=== PATIENT | female | born 1955 | race Caucasian/White ===

== ENCOUNTER → 2017-11-16 | Outpatient (CLI) | payer OTHER | LOC: M LRY 10:46 | DX: S39.92XA Unspecified injury of lower back, initial encounter (principal); X58.XXXA Exposure to other specified factors, initial encounter; Y92.89 Other specified places as the place of occurrence of the external cause | CPT/HCPCS: 72220 ==

== ENCOUNTER → 2018-04-24 | Outpatient (CLI) | payer OTHER ==
[2018-04-24 16:59] LABS: ALBUMIN 3.5 GM/DL (3.2-5.2); ALT/SGPT 29 U/L (12-78); BILIRUBIN,TOTAL 0.4 MG/DL (0.2-1.0); BLOOD UREA NITROGEN 15 MG/DL (7-18); CALCIUM LEVEL 8.5 MG/DL (8.8-10.2); CARBON DIOXIDE LEVEL 26 MEQ/L (21-32); CHLORIDE LEVEL 105 MEQ/L (98-107); CHOLESTEROL LEVEL 185 MG/DL (<200); CHOLESTEROL RISK RATIO 3.189 (<5); CREATININE FOR GFR 0.87 MG/DL (0.55-1.30); GLOMERULAR FILTRATION RATE > 60.0 (>45); GLUCOSE, FASTING 93 MG/DL (70-100); HDL CHOLESTEROL 58 MG/DL (>40); LDL CHOLESTEROL 101 MG/DL (<100); NON-HDL-C 127 MG/DL; POTASSIUM SERUM 4.5 MEQ/L (3.5-5.1); SODIUM LEVEL 141 MEQ/L (136-145); TOTAL PROTEIN 6.8 GM/DL (6.4-8.2); TRIGLYCERIDES LEVEL 130 MG/DL (<150)
[2018-04-26 11:51] LABS: HEPATITIS C VIRUS ABY INDEX 0.1 INDEX (<0.8)
== END ==
LOC: M SFHCPLAZ 10:00 → M RAD 10:00
PROVIDERS: ATTEND Family Medicine
DX: K21.9 Gastro-esophageal reflux disease without esophagitis (principal); E66.9 Obesity, unspecified; Z68.34 Body mass index [BMI] 34.0-34.9, adult

== ENCOUNTER → 2018-04-25 | Outpatient (REF) | payer OTHER ==
[2018-04-25 13:56] LABS: HEMOGLOBIN A1c 6.1 %
== END ==
LOC: M LABDRAWC 11:16
PROVIDERS: ATTEND Family Medicine
DX: E66.9 Obesity, unspecified (principal)

== ENCOUNTER → 2018-05-31 | Outpatient (CLI) | payer OTHER ==
--- NOTE | 2018-05-31 19:37 | REPMRS ---
Patient History The patient states she has not had a clinical breast exam in over a year. No known family history of cancer. Benign stereotatic breast biopsy of the left breast. Digital Woman Screen Mammo: May 31, 2018 - Exam #: [id number] Bilateral CC and MLO view(s) were taken. Technologist: Calista Reyes, Technologist Prior study comparison: February 25, 2016, digital woman screen mammo performed at [facility]. January 05, 2013, digital woman screen mammo performed at [facility]. FINDINGS: There are scattered fibroglandular densities. There has been no change in the appearance of the mammogram from the prior studies. There is a mild amount of residual fibroglandular tissue which is fairly symmetric. There is no interval development of dominant mass, architectural distortion, or clustered microcalcification suggestive of malignancy. Scattered lymph nodes are seen in the axillae. Stereo clip in UOQ left breast as before. 3-D tomosynthesis shows no additional findings. The patient's Tyrer-Cuzick lifetime risk assessment score is 8.6 %. No significant changes when compared with prior studies. Assessment: BI-RADS/ACR category 2 mammogram. Benign Findings. Recommendation Routine screening mammogram in 1 year (for women over age 40). This mammogram was interpreted with the aid of an FDA-approved computer-aided dectection system. A. Negative x-ray reports should not delay biopsy if a dominant or clinically suspicious mass is present. B. Four to eight percent of cancers are not identified by mammography. C. Adenosis and dense breast may obscure an underlying neoplasm. Electronically Signed By: Parveen Espinoza MD 05/31/181936
== END ==
LOC: M WHC 12:05
PROVIDERS: ATTEND Family Medicine
DX: Z12.31 Encounter for screening mammogram for malignant neoplasm of breast (principal)

== ENCOUNTER → 2018-10-10 | Outpatient (REF) | payer MEDICARE, OTHER ==
[2018-10-10 13:21] LABS: HEMOGLOBIN A1c 5.9 %
== END ==
LOC: M SFHCLERA 09:50
PROVIDERS: ATTEND Family Medicine
DX: R73.02 Impaired glucose tolerance (oral) (principal); Z23 Encounter for immunization
CPT/HCPCS: 83036; 90471; 90472; 90670; 90715; G0463

== ENCOUNTER → 2020-02-21 | Outpatient (CLI) | payer MEDICARE ==
--- NOTE | 2020-02-21 09:55 | REPMRS ---
Patient History The patient states she has not had a clinical breast exam in over a year. No known family history of cancer. Benign stereotatic breast biopsy of the left breast. Digital Woman Screen Mammo: February 21, 2020 - Exam #: [id number] Bilateral CC and MLO view(s) were taken. Technologist: Azul Allison, Technologist Prior study comparison: May 31, 2018, bilateral digital woman screen mammo performed at [facility]. February 25, 2016, digital woman screen mammo performed at [facility]. January 05, 2013, digital woman screen mammo performed at [facility]. FINDINGS: The breast tissue is almost entirely fat. The Volpara volumetric breast density category is: A. There is a needle biopsy marker clip in the left breast. There has been no change in the appearance of the mammogram from the prior studies. There is no interval development of dominant mass, architectural distortion, or grouped microcalcification typical of malignancy. 3-D tomosynthesis shows no additional findings. Assessment: BI-RADS/ACR category 2 mammogram. Benign Findings. Recommendation Routine screening mammogram of both breasts in 1 year (for women over age 40). This patient's Lifetime Breast Cancer RIsk is estimated at 7.8 %. This mammogram was interpreted with the aid of an FDA-approved computer-aided dectection system. Electronically Signed By: Eros Lopez MD 02/21/20 0954
== END ==
LOC: M WHC 08:04
PROVIDERS: ATTEND Nurse Practitioner Family
DX: Z12.31 Encounter for screening mammogram for malignant neoplasm of breast (principal)

== ENCOUNTER → 2022-07-13 | Outpatient (REF) | payer MEDICARE, BC | LOC: M SFHCWAGY 15:27 | PROVIDERS: ATTEND Nurse Practitioner Family | DX: Z12.4 Encounter for screening for malignant neoplasm of cervix (principal); N95.8 Other specified menopausal and perimenopausal disorders ==

== ENCOUNTER 2023-05-06 08:55 | Day surgery (SDC) | payer MEDICARE ==
[~2023-05-06] VITALS: Ht 162.6 cm; Wt 87.7 kg
[~2023-05-06 08:55] MED LIST: BIOT5TAB3 PO; NS 1,000 ML IV ONE; OMEP40CA4 PO; VITA100093 PO; propofoL 500 MG/50 ML VIAL As Ordered ONE
[2023-05-06] MEDS ORDERED: fentaNYL 100 MCG/2 ML INJECTION As Ordered ONE (09:30)
[2023-05-06] MEDS ORDERED: LIDOCAINE 2% 100MG/5ML SDV (FOR ANES.) As Ordered ONE (09:31)
[2023-05-06 11:11] VITALS: TEMP 97.7
[2023-05-06 11:25] VITALS: BP 131/63; O2SAT 95
== END 2023-05-06 11:44 | disposition home or self-care (01) ==
LOC: M OPP 08:55
PROVIDERS: ATTEND Internal Medicine Gastroenterology
DX: Z12.11 Encounter for screening for malignant neoplasm of colon (principal); D12.6 Benign neoplasm of colon, unspecified; K64.4 Residual hemorrhoidal skin tags; K64.8 Other hemorrhoids; K57.30 Diverticulosis of large intestine without perforation or abscess without bleeding; K29.70 Gastritis, unspecified, without bleeding; K31.7 Polyp of stomach and duodenum; K44.9 Diaphragmatic hernia without obstruction or gangrene; K30 Functional dyspepsia; Z79.899 Other long term (current) drug therapy; Z88.0 Allergy status to penicillin; Z88.1 Allergy status to other antibiotic agents; Z88.2 Allergy status to sulfonamides
CPT/HCPCS: 43239; 45385; 88305; J3010